=== PATIENT | female | born 1960 | race Caucasian/White ===

== ENCOUNTER 2022-07-08 06:19 | Day surgery (SDC) | payer BC, SELFPAY ==
[2022-07-08] VITALS (10 sets, daily range): BP systolic 102–129; BP diastolic 57–82; PULSE 44–66; RESP 14–16; TEMP 36.5–36.8; O2SAT 97–100; BMI 25.0
[2022-07-08] MEDS: LACTATED RINGERS 1000 ML 1,000 ML 100 ML IV (06:30)
[2022-07-08] MEDS: CEFAZOLIN 2 GM in 0.9 % SODIUM CHLORIDE Mini-bag 100 ML IVPB (07:36)
--- NOTE | 2022-07-08 08:12 | P.ORPRC_ITS ---
Procedure Note Date of procedure: 07/08/22 Procedure: PREOPERATIVE DIAGNOSIS: 1. Right knee medial and lateral meniscus tear POSTOPERATIVE DIAGNOSIS: 1. Right knee medial and lateral meniscus tear 2. 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 3. 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 Right knee arthroscopic partial medial and lateral menisectomy 2. Right knee chondroplasty medial femoral condyle and trochlear groove (loose chondral flaps) SURGEON: Sudheer Newberry M.D. DISTRIBUTION FIELD ENGINEER: Ángel Gibson PA-C. Of note, an acquisitions assistant was critical for this case to aid in patient positioning, knee manipulation, instrument exchange, and closure. ANESTHESIA: Spinal EBL: 2ml TOURNIQUET: 25 minutes at 300 torr COMPLICATIONS: None evident INDICATIONS: The patient is a pleasant 62-year-old female who has experienced right knee pain particularly with any twisting or turning. Physical exam was concerning for medial meniscus tear, this was confirmed on MRI. Additionally, attempted nonoperative management has been tried, and failed. Thus, surgery was recommended. FINDINGS: For complex tearing of the posterior horn medial meniscus approaching the posterior root involving the root and a radial tear. It then extended longitudinally cross the posterior meniscal horn. Had some complex pattern to it. Primarily vertical but also some horizontal and oblique tearing. Lateral meniscus showed tearing of the more central portion from the posterior horn to the anterior horn around the entire circumference. Posterior root was intact. Grade 3 chondromalacia of trochlear groove (6 mm in diameter a greatest location) and grade 3-4 patella median ridge and lateral facet. Also grade 3 chondromalacia medial femoral condyle weight-bearing portion measuring 10 mm in diameter. No loose bodies. ACL and PCL were intact. Lateral compartment articular cartilage overall healthy with only mild grade 2 chondromalacia posterior weight-bearing portion. DESCRIPTION OF PROCEDURE: After a thorough discussion of risks, benefits, and alternatives, the patient was brought to the operating room and placed upon the operating table. Induction of anesthesia was undertaken as previously noted. 2g iv Ancef was administered within 1 hr of incision preoperatively. Appropriate time-out was performed identifying proper patient, site, and procedure. The right lower extremity was prepped and draped in the appropriate sterile fashion using ChloraPrep. The limb was exsanguinated and tourniquet inflated. Anterolateral and anteromedial portals were established with an 11 blade, and a diagnostic arthroscopy was performed. This identified the findings as noted above. Following the diagnostic arthroscopy, a partial medial and lateral menisectomy was performed with the combination of basket forceps and a motorized shaver. Following this, the meniscus was re-probed and found to be stable. Approximately 25-30 % of the overall meniscus required resection. Regarding the lateral meniscus, partial meniscectomy was performed here as well with basket forceps and torpedo shaver. Approximately 10-15% of the overall meniscus required resection here. The shaver was also utilized for chondroplasty of the loose chondral flaps medial femoral condyle and trochlear groove. At this stage, the shaver was reinserted into the suprapatellar pouch and all remaining meniscal debris was evacuated. Instruments were removed, excess fluid was drained, and closure performed with 4-0 Monocryl with Steri-Strips. Dressings were applied, the tourniquet deflated, and the patient was awoken from anesthesia and transferred to the PACU in stable condition. PLAN: 1. Weightbear as tolerated operative extremity. Crutch / walker ambulation assistance PRN. 2. Ice, acetominophen and/or ibuprofen, and Percocet for pain as needed. 3. Knee range of motion and quad sets/straight leg raise regularly 4. Follow up with PA visit in 1-2 weeks for a wound check and possibly to initiate physical therapy.
[2022-07-08] MEDS: ROPIVACAINE 0.5% 30 ML 150 MG INJECTION (08:16)
--- NOTE | 2022-07-08 08:29 | W.ANESCHARGE ---
Anesthesia Charges Start Date/Time Anesthesia Start Date: 07/08/22 Anesthesia Start Time: 07:26 Stop Date/Time Anesthesia Stop Date: 07/08/22 Anesthesia Stop Time: 08:28 Summary Emergency: No
--- NOTE | 2022-07-08 09:30 | W.ANESCHARGE ---
Anesthesia Charges Start Date/Time Anesthesia Start Date: 07/08/22 Anesthesia Start Time: 07:26 Stop Date/Time Anesthesia Stop Date: 07/08/22 Anesthesia Stop Time: 08:28 Summary Emergency: No
== END 2022-07-08 11:06 | disposition home or self-care (01) ==
PROVIDERS: PCP Physician Assistant Medical; Visit Provider Orthopaedic Surgery Sports Medicine
PROC: (CPT 29870; principal; 2022-07-08 07:30)
DX: M23.221 Derangement of posterior horn of medial meniscus due to old tear or injury, right knee (principal); M23.251 Derangement of posterior horn of lateral meniscus due to old tear or injury, right knee; M94.261 Chondromalacia, right knee
CPT/HCPCS: 29880; 01400; J0690; J1100; J2250; J2400; J2405; J2704; J2795; J3010; J7120

== ENCOUNTER 2022-07-09 20:11 | Emergency (ER) | payer BC, SELFPAY ==
[2022-07-09 20:54] VITALS: BP 114/68; PULSE 85; RESP 16; TEMP 35.9; O2SAT 98; BMI 25.1
--- NOTE | 2022-07-09 22:51 | CRLHL7_ITS ---
For Patients: As a result of the Cures Act, medical imaging exams and procedure reports are released immediately into your electronic medical record. You may view this report before your referring provider. If you have questions, please contact your health care provider. INDICATION: Syncope. TECHNIQUE: CT head without contrast. COMPARISON: None. FINDINGS: CSF spaces: Within normal limits for age. Brain parenchyma and extra-axial spaces: Postsurgical changes in the right frontotemporal lobe with underlying encephalomalacia. No sign of mass, hemorrhage, or midline shift. No extra-axial fluid collection. Skull base and calvarium: The visualized paranasal sinuses and mastoid air cells demonstrate no acute or significant findings. The visualized orbits are grossly unremarkable. Postsurgical changes from right frontotemporal craniotomy. No skull fractures. IMPRESSION: No acute intracranial process identified. Postsurgical changes from right frontal temporal craniotomy with underlying encephalomalacia in the anterior right temporal lobe. Please note that all CT scans at this facility use dose modulation, iterative reconstruction, and/or weight-based dosing when appropriate to reduce radiation dose to as low as reasonably achievable. Dictated by Bianka Gutierrez MD @ 07/09/2022 11:57:50 PM (Electronically Signed)
--- NOTE | 2022-07-09 23:23 | ED.SYNCOPE ---
HPI - Syncope General Chief Complaint: Syncope/Fainted <Chito Harp MD - Last Filed: 07/11/22 07:21> Stated Complaint: passed out, fever, sweating, nausea <Chito Harp MD - Last Filed: 07/11/22 07:21> Time Seen by Provider: 07/09/22 22:48 <Chito Harp MD - Last Filed: 07/11/22 07:21> History of Present Illness HPI narrative: Pt is a 62 year old woman who had right knee arthroscopy approximately 1 week ago who presents after a syncopal episode this evening. Pt was seated at the kitchen table when she felt lightheaded and briefly for 1-2 seconds lost consciousness. Pt was caught by her daughter before she fell. Pt had minimal prodrome and had no post ictal symptoms. Pt describes no nausea, vomiting or lightheadedness. She states that she has not felt well since having her knee surgery with no localizing symptoms. Pt is now back to her post op baseline. She states the episode occured approximately 3 hours ago as she had a 2 hour wait in the ED. No previous syncope. <Chito Harp MD - Last Filed: 07/11/22 07:21> Related Data Home Medications: Previous Rx's Medication Instructions Recorded oxycodone-acetaminophen 5 mg-325 1 tab PO Q4-8H PRN pain #10 tabs 07/08/22 mg tablet (Percocet) rivaroxaban 15 mg tablet (Xarelto) 15 mg PO BID 3 weeks #42 tabs 07/10/22 <Chito Harp MD - Last Filed: 07/11/22 07:21> Allergies/Adverse Reactions: Allergies Allergy/AdvReac Type Severity Reaction Status Date / Time hydrocodone Allergy Rash Verified 07/08/22 06:24 morphine Allergy Rash Verified 07/08/22 06:24 <Chito Harp MD - Last Filed: 07/11/22 07:21> Review of Systems Status of ROS: Reports: 10 or more systems reviewed and unremarkable except as noted in History and below <Chito Harp MD - Last Filed: 07/11/22 07:21> [facility] Medical History: Medical History Benign meningioma (~2012) GERD (gastroesophageal reflux disease) Seasonal allergies <Chito Harp MD - Last Filed: 07/11/22 07:21> Surgical History: Surgical History H/O vaginal hysterectomy History of back surgery History of foot surgery History of tonsillectomy <Chito Harp MD - Last Filed: 07/11/22 07:21> Social History: Social History Smoking Status: Former smoker What tobacco products do you use: cigarettes Smoking quit date/years: >15 years ago Do you use any of these nicotine containing products: None Second hand tobacco smoke exposure: No How often do you have a drink containing alcohol: never AUDIT-C Alcohol total score: 0 Non-prescribed substance use: marijuana (any form) <Chito Harp MD - Last Filed: 07/11/22 07:21> Exam Narrative: Exam Narrative: EXAM GENERAL: Patient appears comfortable and well. EYES: No scleral icterus. ENT: Tympanic membranes and oropharynx normal. THYROID: no thyroid nodules or thyromegaly. LYMPH: No supraclavicular or cervical lymphadenopathy. SKIN: Visible skin seen during exam normal or with benign process only. EXT: No dependent lower extremity pedal edema. HEART: Regular rate and rhythm with no murmurs, rubs, or gallops. LUNGS: Clear to auscultation bilaterally with no crackles or wheezes. ABD: Soft, non tender, non distended. PSYCH: Good eye contact, speech is not pressured. <Chito Hapr MD - Last Filed: 07/11/22 07:21> Const: Vital Signs, click to edit/add: Vital Signs - 24 hr 07/09/22 20:54 07/10/22 02:43 Temperature 96.7 F L Pulse Rate [Right Pulse Oximeter] 85 61 Respiratory Rate 16 16 Blood Pressure [Ri ght Upper Arm] 114/68 112/70 Pulse Oximetry 98 97 Oxygen Delivery Me thod Room Air Room Air <Chito Harp MD - Last Filed: 07/11/22 07:21> Vital Signs, click to edit/add: Vital Signs - 24 hr 07/09/22 20:54 07/10/22 02:43 Temperature 96.7 F L Pulse Rate [Right Pulse Oximeter] 85 61 Respiratory Rate 16 16 Blood Pressure [Ri ght Upper Arm] 114/68 112/70 Pulse Oximetry 98 97 Oxygen Delivery Me thod Room Air Room Air <Jolanta aGlarza MD - Last Filed: 07/10/22 03:51> Course Course Hospital Course: Pt seen and examined. Vitals reviewed. CT of head, D dimer, EKG, Toponin, CBC, Basic Metabolic Panel, UA ordered <Chito Harp MD - Last Filed: 07/11/22 07:21> Reevaluation(s) Reevaluation #1: Pt CT of the head negative for acute findings. Pt labs unremarkable except for elevated D-dimer which is likely from surgery but CT PE study ordered. <Chito Harp MD - Last Filed: 07/11/22 07:21> Time: 01:06 <Chito Harp MD - Last Filed: 07/11/22 07:21> Vital Signs Vital signs: Initial Vital Signs Temperature 96.7 F L 07/09/22 20:54 Temperature Source Temporal Artery Scan 07/09/22 20:54 Pulse Rate 85 07/09/22 20:54 Pulse Rhythm 07/09/22 20:54 Respiratory Rate 16 07/09/22 20:54 Blood Pressure 114/68 07/09/22 20:54 Blood Pressure Mean 83 07/09/22 20:54 Pulse Oximetry 98 07/09/22 20:54 Oxygen Delivery Method 07/09/22 20:54 Vital Signs Temperature 96.7 F L 07/09/22 20:54 Pulse Rate 85 07/09/22 20:54 Respiratory Rate 16 07/09/22 20:54 Blood Pressure 114/68 07/09/22 20:54 Pulse Oximetry 98 07/09/22 20:54 Oxygen Delivery Method 07/09/22 20:54 Temperature 96.7 F L 07/09/22 20:54 Pulse Rate 61 07/10/22 02:43 Respiratory Rate 16 07/10/22 02:43 Blood Pressure 112/70 07/10/22 02:43 Pulse Oximetry 97 07/10/22 02:43 Oxygen Delivery Method 07/10/22 02:43 <Chito Harp MD - Last Filed: 07/11/22 07:21> Initial Vital Signs Temperature 96.7 F L 07/09/22 20:54 Temperature Source Temporal Artery Scan 07/09/22 20:54 Pulse Rate 85 07/09/22 20:54 Pulse Rhythm 07/09/22 20:54 Respiratory Rate 16 07/09/22 20:54 Blood Pressure 114/68 07/09/22 20:54 Blood Pressure Mean 83 07/09/22 20:54 Pulse Oximetry 98 07/09/22 20:54 Oxygen Delivery Method 07/09/22 20:54 Vital Signs Temperature 96.7 F L 07/09/22 20:54 Pulse Rate 85 07/09/22 20:54 Respiratory Rate 16 07/09/22 20:54 Blood Pressure 114/68 07/09/22 20:54 Pulse Oximetry 98 07/09/22 20:54 Oxygen Delivery Method 07/09/22 20:54 Temperature 96.7 F L 07/09/22 20:54 Pulse Rate 61 07/10/22 02:43 Respiratory Rate 16 07/10/22 02:43 Blood Pressure 112/70 07/10/22 02:43 Pulse Oximetry 97 07/10/22 02:43 Oxygen Delivery Method 07/10/22 02:43 <Jolanta Galarza MD - Last Filed: 07/10/22 03:51> MDM - Syncope MDM Narrative Medical decision making narrative: Reviewed CT scan findings with patient. Small by basilar pulmonary emboli. No tachycardia, no hypotension, no hypoxia. Patient does not meet criteria for admission. Reviewed her risk factors for PE, low risk. This is even a very low risk surgery. Because of this I recommend bilateral venous Doppler ultrasounds. Discussed anticoagulation, recommend Xarelto, she is in agreement with this. Would recommend that she have hematology follow-up and workup for what seemingly a unprovoked PE. Update 345: Reviewed venous Doppler ultrasound, appears to be some nonocclusive thrombus in the right calf. This is confirmed with radiology report. It does not extend beyond the knee and is not fully occlusive. Discussed findings with patient. She received her 1st dose of Xarelto here in the emergency department, we discussed anticoagulation. Discussed pain control, avoidance of NSAIDs if possible, typical expectations of symptoms and symptoms that would warrant alarm. She verbalizes understanding and agreement. Does not need hospitalization because there is no tachycardia, no hypoxia, no hypotension. There is not severe clot burden in her legs. <Jolanta Galarza MD - Last Filed: 07/10/22 03:51> Medical Records Attestation: I reviewed the patient's medical records. <Jolanta Galarza MD - Last Filed: 07/10/22 03:51> Lab Data Attestation: I reviewed the patient's lab results. <Jolanta Galarza MD - Last Filed: 07/10/22 03:51> Labs: Lab Results 07/10/22 07/10/22 07/10/22 Range/Units 00:15 00:15 00:15 WBC 8.41 (4.50-11.00) K/uL RBC 4.38 (4.00-5.20) m/uL Hgb 13.3 (12.0-16.0) gm/dL Hct 41.5 (33.0-51.0) % MCV 95 (80-100) fL MCH 30 (26-34) pg MCHC 32 (32-36) gm/dL RDW Coeff of [place] 12.8 (11.5-15.5) % Plt Count 170 (140-440) K/uL Neut % (Auto) 65.9 (42.0-72.0) % Lymph % (Auto) 24.9 (20-44) % [place] % (Auto) 8.2 (0.0-11.0) % Eos % (Auto) 0.7 (0.0-7.0) % Baso % (Auto) 0.2 (0.0-3.0) % Neut # (Auto) 5.54 (1.7-7.0) K/uL Lymph # (Auto) 2.09 (0.90-2.90) K/uL [place] # (Auto) 0.70 (0.00-0.90) K/UL Eos # (Auto) 0.06 (0.00-0.50) K/uL Baso # (Auto) 0.02 (0.00-0.30) K/uL Abs Immat Gran (auto) 0.01 (0.00-0.30) K/uL Imm/Tot Granulo (auto) 0.1 % D-Dimer Quant (PE/DVT) 3.72 H (0.00-0.50) ug/ml Sodium 141 (135-149) mmol/L Potassium 4.1 (3.6-5.1) mmol/L Chloride 106 (96-114) mmol/L Carbon Dioxide 29 (20-32) mmol/L BUN 24 (7-30) mg/dL Creatinine 1.1 (0.5-1.5) mg/dL Estimated Creat Clear 50.91 Estimated GFR 56 ml/min Glucose 85 (60-115) mg/dL Calcium 9.1 (8.4-10.6) mg/dL Troponin I < 0.01 L (0.01-0.04) ng/mL Urine Color (Yellow) Urine Appearance (Clear) Urine pH (5.0-8.5) Ur Specific [place] (1.000-1.030) Urine Protein (Negative) Urine Glucose (UA) (Negative) Urine Ketones (Negative) Urine Blood (Negative) Urine Nitrite (Negative) Urine Bilirubin (Negative) Urine Urobilinogen (0.2-1.0) Ur Leukocyte Esterase (Negative) 07/10/22 Range/Units 00:15 WBC (4.50-11.00) K/uL RBC (4.00-5.20) m/uL Hgb (12.0-16.0) gm/dL Hct (33.0-51.0) % MCV (80-100) fL MCH (26-34) pg MCHC (32-36) gm/dL RDW Coeff of [place] (11.5-15.5) % Plt Count (140-440) K/uL Neut % (Auto) (42.0-72.0) % Lymph % (Auto) (20-44) % [place] % (Auto) (0.0-11.0) % Eos % (Auto) (0.0-7.0) % Baso % (Auto) (0.0-3.0) % Neut # (Auto) (1.7-7.0) K/uL Lymph # (Auto) (0.90-2.90) K/uL [place] # (Auto) (0.00-0.90) K/UL Eos # (Auto) (0.00-0.50) K/uL Baso # (Auto) (0.00-0.30) K/uL Abs Immat Gran (auto) (0.00-0.30) K/uL Imm/Tot Granulo (auto) % D-Dimer Quant (PE/DVT) (0.00-0.50) ug/ml Sodium (135-149) mmol/L Potassium (3.6-5.1) mmol/L Chloride (96-114) mmol/L Carbon Dioxide (20-32) mmol/L BUN (7-30) mg/dL Creatinine (0.5-1.5) mg/dL Estimated Creat Clear Estimated GFR ml/min Glucose (60-115) mg/dL Calcium (8.4-10.6) mg/dL Troponin I (0.01-0.04) ng/mL Urine Color Yellow (Yellow) Urine Appearance Clear (Clear) Urine pH 6.0 (5.0-8.5) Ur Specific [place] 1.025 (1.000-1.030) Urine Protein Negative (Negative) Urine Glucose (UA) Negative (Negative) Urine Ketones Negative (Negative) Urine Blood Negative (Negative) Urine Nitrite Negative (Negative) Urine Bilirubin Negative (Negative) Urine Urobilinogen 0.2 (0.2-1.0) Ur Leukocyte Esterase Negative (Negative) <Chito Harp MD - Last Filed: 07/11/22 07:21> Lab Results 07/10/22 07/10/22 07/10/22 Range/Units 00:15 00:15 00:15 WBC 8.41 (4.50-11.00) K/uL RBC 4.38 (4.00-5.20) m/uL Hgb 13.3 (12.0-16.0) gm/dL Hct 41.5 (33.0-51.0) % MCV 95 (80-100) fL MCH 30 (26-34) pg MCHC 32 (32-36) gm/dL RDW Coeff of [place] 12.8 (11.5-15.5) % Plt Count 170 (140-440) K/uL Neut % (Auto) 65.9 (42.0-72.0) % Lymph % (Auto) 24.9 (20-44) % [place] % (Auto) 8.2 (0.0-11.0) % Eos % (Auto) 0.7 (0.0-7.0) % Baso % (Auto) 0.2 (0.0-3.0) % Neut # (Auto) 5.54 (1.7-7.0) K/uL Lymph # (Auto) 2.09 (0.90-2.90) K/uL [place] # (Auto) 0.70 (0.00-0.90) K/UL Eos # (Auto) 0.06 (0.00-0.50) K/uL Baso # (Auto) 0.02 (0.00-0.30) K/uL Abs Immat Gran (auto) 0.01 (0.00-0.30) K/uL Imm/Tot Granulo (auto) 0.1 % D-Dimer Quant (PE/DVT) 3.72 H (0.00-0.50) ug/ml Sodium 141 (135-149) mmol/L Potassium 4.1 (3.6-5.1) mmol/L Chloride 106 (96-114) mmol/L Carbon Dioxide 29 (20-32) mmol/L BUN 24 (7-30) mg/dL Creatinine 1.1 (0.5-1.5) mg/dL Estimated Creat Clear 50.91 Estimated GFR 56 ml/min Glucose 85 (60-115) mg/dL Calcium 9.1 (8.4-10.6) mg/dL Troponin I < 0.01 L (0.01-0.04) ng/mL Urine Color (Yellow) Urine Appearance (Clear) Urine pH (5.0-8.5) Ur Specific [place] (1.000-1.030) Urine Protein (Negative) Urine Glucose (UA) (Negative) Urine Ketones (Negative) Urine Blood (Negative) Urine Nitrite (Negative) Urine Bilirubin (Negative) Urine Urobilinogen (0.2-1.0) Ur Leukocyte Esterase (Negative) 07/10/22 Range/Units 00:15 WBC (4.50-11.00) K/uL RBC (4.00-5.20) m/uL Hgb (12.0-16.0) gm/dL Hct (33.0-51.0) % MCV (80-100) fL MCH (26-34) pg MCHC (32-36) gm/dL RDW Coeff of [place] (11.5-15.5) % Plt Count (140-440) K/uL Neut % (Auto) (42.0-72.0) % Lymph % (Auto) (20-44) % [place] % (Auto) (0.0-11.0) % Eos % (Auto) (0.0-7.0) % Baso % (Auto) (0.0-3.0) % Neut # (Auto) (1.7-7.0) K/uL Lymph # (Auto) (0.90-2.90) K/uL [place] # (Auto) (0.00-0.90) K/UL Eos # (Auto) (0.00-0.50) K/uL Baso # (Auto) (0.00-0.30) K/uL Abs Immat Gran (auto) (0.00-0.30) K/uL Imm/Tot Granulo (auto) % D-Dimer Quant (PE/DVT) (0.00-0.50) ug/ml Sodium (135-149) mmol/L Potassium (3.6-5.1) mmol/L Chloride (96-114) mmol/L Carbon Dioxide (20-32) mmol/L BUN (7-30) mg/dL Creatinine (0.5-1.5) mg/dL Estimated Creat Clear Estimated GFR ml/min Glucose (60-115) mg/dL Calcium (8.4-10.6) mg/dL Troponin I (0.01-0.04) ng/mL Urine Color Yellow (Yellow) Urine Appearance Clear (Clear) Urine pH 6.0 (5.0-8.5) Ur Specific [place] 1.025 (1.000-1.030) Urine Protein Negative (Negative) Urine Glucose (UA) Negative (Negative) Urine Ketones Negative (Negative) Urine Blood Negative (Negative) Urine Nitrite Negative (Negative) Urine Bilirubin Negative (Negative) Urine Urobilinogen 0.2 (0.2-1.0) Ur Leukocyte Esterase Negative (Negative) <Jolanta Galarza MD - Last Filed: 07/10/22 03:51> Imaging Data CT scan - chest: Radiologist's impression: IMPRESSION: 1. Small acute pulmonary emboli are present within the right middle lobe, right lower lobe and lingula. <Jolanta Galarza MD - Last Filed: 07/10/22 03:51> Discharge Plan Discharge Clinical Impression: Acute deep vein thrombosis (DVT) of distal end of right lower extremity, Pulmonary emboli <Chito Harp MD - Last Filed: 07/11/22 07:21> Patient Disposition: Home w/ Parent or Adult <Chito Harp MD - Last Filed: 07/11/22 07:21> Condition: Stable <Chito Harp MD - Last Filed: 07/11/22 07:21> Instructions: Deep Vein Thrombosis (ED) <Chito Harp MD - Last Filed: 07/11/22 07:21> Additional Instructions: You have developed a blood clot after surgery in your leg. A small piece of this has traveled into your lungs, likely causing your fainting spell. We will start you on blood thinners. You have been given your 1st dose here in the emergency room. Your next dose will be this evening. Read the instructions carefully, you take this 2 times per day for the 1st few weeks and then change to a different dose once daily. I would like for you to follow-up with her primary care doctor in a few days for recheck. Because this was a minor surgery, it was not highly likely to have given you a blood clot in this warrants some discussion on your long-term risk of more blood clots. Your primary care doctor might consider keeping you a blood thinners for a longer period of time or for having you evaluated by a farm loan representative for further discussion. As we discussed, it is best to use Tylenol for pain control. Ibuprofen and Aleve might have some interactions with the blood thinners. It is okay to take the oxycodone. Is important that you come back to the emergency department right away if you start feeling more short of breath. Some chest wall tightness can be common and some very mild shortness of breath with activity would be expected. This should improve in a few weeks. <Chito Harp MD - Last Filed: 07/11/22 07:21> Activity Level: Activity as Tolerated <Chito Harp MD - Last Filed: 07/11/22 07:21> Activity as Tolerated <Jolanta Galarza MD - Last Filed: 07/10/22 03:51> Discharge Diet: Regular <Chito Harp MD - Last Filed: 07/11/22 07:21> Regular <Jolanta Galarza MD - Last Filed: 07/10/22 03:51> Prescriptions: New Xarelto 15 mg tablet 15 mg PO BID 21 Days Qty: 42 0RF Rx Instructions: After 3 weeks, switch to 20 mg once daily, prescription from primary care provider No Action oxycodone-acetaminophen [Percocet] 5-325 mg tablet 1 tab PO Q4-8H PRN (Reason: pain) Qty: 10 0RF <Chito Harp MD - Last Filed: 07/11/22 07:21> Follow Up/Referrals: Cynthia Kendrick, PABlaiseC [Primary Care Provider] - <Chito Harp MD - Last Filed: 07/11/22 07:21> Stand Alone Forms: MyHealth Info Instructions <Chito Harp MD - Last Filed: 07/11/22 07:21>
[2022-07-10 00:23] LABS: Basophils Absolute Auto 0.02 K/uL (0.00-0.30); Basophils Percent Auto 0.2 % (0.0-3.0); Eosinophils Absolute Auto 0.06 K/uL (0.00-0.50); Eosinophils Percent Auto 0.7 % (0.0-7.0); Hematocrit 41.5 % (33.0-51.0); Hemoglobin* 13.3 gm/dL (12.0-16.0); Immature Granulocytes Abs Auto 0.01 K/uL (0.00-0.30); Immature Granulocytes Pct Auto 0.1 %; Lymphocytes Absolute Auto 2.09 K/uL (0.90-2.90); Lymphocytes Percent Auto 24.9 % (20-44); Mean Corpuscular HGB Conc 32 gm/dL (32-36); Mean Corpuscular Hemoglobin 30 pg (26-34); Mean Corpuscular Volume 95 fL (80-100); Monocytes Percent Auto 8.2 % (0.0-11.0); Neutrophils Absolute Auto 5.54 K/uL (1.7-7.0); Neutrophils Percent Auto 65.9 % (42.0-72.0); Platelet Count* 170 K/uL (140-440); RDW Coefficient of Variation % 12.8 % (11.5-15.5); Red Blood Count 4.38 m/uL (4.00-5.20); White Blood Count* 8.41 K/uL (4.50-11.00)
[2022-07-10 00:31] LABS: Appearance Urine Clear (Clear); Bilirubin Urine Negative (Negative); Blood Urine Negative (Negative); Color Urine Yellow (Yellow); Glucose Urine Negative (Negative); Ketones Urine Negative (Negative); Leukocyte Esterase Urine Negative (Negative); Nitrite Urine Negative (Negative); Protein Urine Negative (Negative); Slide Review Reflex No; Specific Gravity Urine 1.025 (1.000-1.030); Urobilinogen Urine 0.2 (0.2-1.0)
[2022-07-10 00:36] LABS: Chloride* 106 mmol/L (96-114); Potassium* 4.1 mmol/L (3.6-5.1); Sodium* 141 mmol/L (135-149)
[2022-07-10 00:39] LABS: Blood Urea Nitrogen* 24 mg/dL (7-30); Carbon Dioxide* 29 mmol/L (20-32); Creatinine* 1.1 mg/dL (0.5-1.5); Est. Creatinine Clearance* 50.91; Estimated Glomerular Filt Rate 56 ml/min
[2022-07-10 00:40] LABS: Calcium* 9.1 mg/dL (8.4-10.6); Glucose* 85 mg/dL (60-115)
[2022-07-10 00:42] LABS: D Dimer Quantitative* 3.72 ug/ml (0.00-0.50)
[2022-07-10 00:56] LABS: Troponin I* < 0.01 ng/mL (0.01-0.04)
--- NOTE | 2022-07-10 01:11 | CRLHL7_ITS ---
For Patients: As a result of the Century Cures Act, medical imaging exams and procedure reports are released immediately into your electronic medical record. You may view this report before your referring provider. If you have questions, please contact your health care provider. INDICATION: Syncope TECHNIQUE: CT chest with i.v. contrast using pulmonary angiographic technique. Coronal and sagittal reformats were obtained. CONTRAST: 95 mL Isovue 370 COMPARISON: None FINDINGS: Cardiovascular: Small acute pulmonary emboli are present within the right middle lobe, right lower lobe and lingula. The heart has an unremarkable appearance and size. Ectasia of the ascending aorta is noted measuring 3.3 cm. Mediastinum: No mass or adenopathy seen. Lung: Minimal segmental atelectasis is present in the medial left lower lobe. A small portion of the right apex is excluded. Pleura and pericardium: No sign of pleural effusion seen. No significant pericardial effusion is present. Chest wall and axilla: No mass or adenopathy seen. Bone: Unremarkable for age. Upper abdomen: Unremarkable. IMPRESSION: 1. Small acute pulmonary emboli are present within the right middle lobe, right lower lobe and lingula. The findings were discussed with Dr. Galarza at 1:57 AM. Dictated by Christopher Small MD @ 07/10/2022 1:54:41 AM Please note that all CT scans at this facility use dose modulation, iterative reconstruction, and/or weight-based dosing when appropriate to reduce radiation dose to as low as reasonably achievable. Dictated by: Christopher Small MD @ 07/10/2022 01:57:51 (Electronically Signed)
--- NOTE | 2022-07-10 02:15 | CRLHL7_ITS ---
For Patients: As a result of the Century Cures Act, medical imaging exams and procedure reports are released immediately into your electronic medical record. You may view this report before your referring provider. If you have questions, please contact your health care provider. INDICATION: Bilateral pulmonary embolism TECHNIQUE: Ultrasound venous duplex bilateral lower extremities. Real-time chang-scale (B mode 2D), color Doppler, and spectral Doppler imaging were performed with compression and augmentation. COMPARISON: None FINDINGS: Deep veins: Nonocclusive thrombus is seen within the right posterior tibial and peroneal calf veins. The right common femoral, femoral, and popliteal veins are patent and compressible. The left lower extremity deep veins are patent and compressible. Superficial veins: The visualized greater saphenous and superficial veins of the leg and calf are unremarkable. Soft tissue: No masses or cysts are identified. No adenopathy is seen. IMPRESSION: 1. Nonocclusive thrombus is seen within the right posterior tibial and peroneal calf veins. The findings were discussed with Dr. Galarza at 3:37 AM. Dictated by Christopher Small MD @ 07/10/2022 3:37:30 AM Dictated by: Christopher Small MD @ 07/10/2022 03:37:38 (Electronically Signed)
[2022-07-10 02:43] VITALS: BP 112/70; PULSE 61; RESP 16; O2SAT 97
[2022-07-10] MEDS: RIVAROXABAN 10 MG TABLET 15 MG PO (02:44)
== END 2022-07-10 04:21 | disposition home or self-care (01) ==
PROVIDERS: Emergency Provider Internal Medicine; PCP Physician Assistant Medical
DX: I82.4Z1 Acute embolism and thrombosis of unspecified deep veins of right distal lower extremity (principal)
CPT/HCPCS: 36415; 70450; 71260; 80048; 81003; 84484; 85025; 85379; 93005; 93970; 99283; 99284; 99285; A9270; Q9967

== ENCOUNTER 2022-07-11 11:11 | Outpatient (CLI) | payer BC, SELFPAY | END 2022-07-11 11:12 | disposition home or self-care (01) | LOC: AMB 08-05 20:03 | PROVIDERS: PCP Physician Assistant Medical; Visit Provider Family Medicine | DX: R07.89 Other chest pain (principal) | CPT/HCPCS: A0425; A0427 ==

== ENCOUNTER 2022-07-11 11:42 | Emergency (ER) | payer BC, SELFPAY ==
[2022-07-11] VITALS (9 sets, daily range): BP systolic 103–139; BP diastolic 67–97; PULSE 64; TEMP 36.8; O2SAT 100; BMI 25.1
--- NOTE | 2022-07-11 12:05 | ED_ITS ---
HPI - General Adult General Time Seen by Provider: 12:06 Date Seen: 07/11/22 Stated complaint: Chest pain Time Seen by Provider: 07/11/22 11:50 Source: patient, EMS and RN notes reviewed Mode of arrival: EMS Limitations: no limitations History of Present Illness HPI narrative: Patient is a 62-year-old female coming in with chest discomfort, it is particularly bad just starting today, does hurt with breathing. It really started this morning. She states she took her Xarelto around 8:00 a.m. and then about an hour later she started having dizziness severe chest discomfort and nausea. 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 She was initiated on Xarelto and has been taking it. She has taken 2 doses at home. She last took oxycodone yesterday. She has been using this for her knee but it is making her constipated. No fevers. No sense of palpitations. She would like something for discomfort. She is not coughing, no hemoptysis. She is not short of breath. Related Data Previous Rx's Medication Instructions Recorded oxycodone-acetaminophen 5 mg-325 1 tab PO Q4-8H PRN pain #10 tabs 07/08/22 mg tablet (Percocet) rivaroxaban 15 mg tablet (Xarelto) 15 mg PO BID 3 weeks #42 tabs 07/10/22 Allergies Allergy/AdvReac Type Severity Reaction Status Date / Time hydrocodone Allergy Rash Verified 07/08/22 06:24 morphine Allergy Rash Verified 07/08/22 06:24 Review of Systems Status of ROS: Reports: 10 or more systems reviewed and unremarkable except as noted in History and below FOR[facility], LATER [facility] Medical History Benign meningioma (~2011) GERD (gastroesophageal reflux disease) Seasonal allergies Surgical History H/O vaginal hysterectomy History of back surgery History of foot surgery History of tonsillectomy Social History Smoking Status: Former smoker What tobacco products do you use: cigarettes Smoking quit date/years: >15 years ago Do you use any of these nicotine containing products: None Second hand tobacco smoke exposure: No How often do you have a drink containing alcohol: never AUDIT-C Alcohol total score: 0 Non-prescribed substance use: marijuana (any form) Exam Const: Vital Signs, click to edit/add: Vital Signs - 24 hr 07/11/22 11:51 Temperature 98.3 F Pulse Rate [Pulse Oximeter] 64 Blood Pressure [Ri ght Upper Arm] 139/97 H Pulse Oximetry 100 Oxygen Delivery Me thod Room Air Documenting provider has reviewed patient's vital signs: yes Common normals: no apparent distress, average body habitus, oriented x3, no limitations, healthy appearing and alert General appearance: cooperative, comfortable, well kempt and well developed Nutritional appearance: thin HENMT: Common normals: normocephalic, head/scalp atraumatic, hearing grossly normal bilaterally, external nose normal, nasal mucous membranes and turbinates normal, moist oral mucous membranes, oropharynx normal, dentition normal and gingiva normal Head and scalp: normocephalic and atraumatic Nose: external nose normal and nasal mucous membranes and turbinates normal Eye: Common normals: PERRL, EOMs intact bilaterally, conjunctivae normal and no scleral icterus Conjunctiva: conjunctiva(e) normal Pupil: PERRL Neck & C-Spine: Common normals: full ROM, no lymphadenopathy, supple, no meningeal signs, no JVD and thyroid normal Thyroid: thyroid normal Chest: Common normals: inspection of chest normal and palpation of chest normal Resp: Common normals: normal respiratory effort, no retractions, no use of accessory muscles and clear to auscultation bilaterally Auscultation: clear to auscultation bilaterally Cardio: Common normals: no JVD, regular rate, regular rhythm, S1 normal heart sound, S2 normal heart sound, no gallops, no clicks and no murmurs Rate: regular rate Rhythm: regular rhythm Heart sounds: S1 normal and S2 normal GI: Common normals: Normal to inspection, nondistended, normoactive bowel sounds present, soft to palpation, non-tender, no hepatosplenomegaly and no masses Palpation: soft and no hepatosplenomegaly Extremity: Other: She has no pitting edema of her lower extremities. Calf is really not that tender on the right. She has some expected soft tissue swelling about the right knee, wounds look like they are well healing, no concerns of any postoperative infection on examination. Neuro: Common normals: oriented x3 Sensorium/orientation: alert Meningeal signs: no meningeal signs Speech: speech normal Psych: Appearance: well kempt Course Course Hospital Course: Patient has had a recent diagnosis of pulmonary embolus. She also has a right lower extremity DVT. We will proceed with CT of her chest with IV contrast looking at complications. Have discussed pulmonary infarction, cardiac complications of pulmonary emboli. Will check appropriate labs. She will be on pulse oximetry and cardiac monitoring. We will obtain an EKG as well. She is currently hemodynamically stable. Reevaluation(s) Reevaluation #1: Have reviewed with patient that her chest CT is not showing any concerning change. Her labs are stable, no evidence of any cardiac enzyme elevation. Her white count is normal, hemoglobin stable. She did have some dizziness, do wonder if it could be narcotic induced. She does not like how she feels on it. The 5 mg of oxycodone certainly did help her here. We discussed using Tylenol baseline, did review with her that she can try cutting the oxycodone in half and just taking 2.5 mg at a time. She is going to try that. We will be able to discharge her to home. She is not requiring hospitalization, is not hypoxic. Time: 14:29 Vital Signs Vital signs: Initial Vital Signs Temperature 98.3 F 07/11/22 11:51 Temperature Source Temporal Artery Scan 07/11/22 11:51 Pulse Rate 64 07/11/22 11:51 Blood Pressure 139/97 H 07/11/22 11:51 Blood Pressure Mean 111 07/11/22 11:51 Pulse Oximetry 100 07/11/22 11:51 Oxygen Delivery Method 07/11/22 11:51 Vital Signs Temperature 98.3 F 07/11/22 11:51 Pulse Rate 64 07/11/22 11:51 Blood Pressure 139/97 H 07/11/22 11:51 Pulse Oximetry 100 07/11/22 11:51 Oxygen Delivery Method 07/11/22 11:51 Temperature 98.3 F 07/11/22 11:51 Pulse Rate 64 07/11/22 11:51 Blood Pressure 139/97 H 07/11/22 11:51 Pulse Oximetry 100 07/11/22 11:51 Oxygen Delivery Method 07/11/22 11:51 Medical Decision Making Lab Data Lab results reviewed: Yes I reviewed the patient's lab results Labs: Lab Results 07/11/22 07/11/22 07/11/22 Range/Units 12:39 12:39 12:39 WBC 6.03 (4.50-11.00) K/uL RBC 4.28 (4.00-5.20) m/uL Hgb 13.2 (12.0-16.0) gm/dL Hct 40.4 (33.0-51.0) % MCV 94 (80-100) fL MCH 31 (26-34) pg MCHC 33 (32-36) gm/dL RDW Coeff of Florencia 13.0 (11.5-15.5) % Plt Count 166 (140-440) K/uL Neut % (Auto) 54.8 (42.0-72.0) % Lymph % (Auto) 35.0 (20-44) % Carter % (Auto) 7.8 (0.0-11.0) % Eos % (Auto) 1.5 (0.0-7.0) % Baso % (Auto) 0.7 (0.0-3.0) % Neut # (Auto) 3.31 (1.7-7.0) K/uL Lymph # (Auto) 2.11 (0.90-2.90) K/uL Carter # (Auto) 0.50 (0.00-0.90) K/UL Eos # (Auto) 0.09 (0.00-0.50) K/uL Baso # (Auto) 0.04 (0.00-0.30) K/uL Abs Immat Gran (auto) 0.01 (0.00-0.30) K/uL Imm/Tot Granulo (auto) 0.2 % VBG pH 7.369 (7.32-7.43) VBG pCO2 50 (40-50) mmHG VBG pO2 20.6 L (25-47) mmHG VBG HCO3 29 H (21-28) mmol/L Sodium 140 (135-149) mmol/L Potassium 4.1 (3.6-5.1) mmol/L Chloride 106 (96-114) mmol/L Carbon Dioxide 28 (20-32) mmol/L BUN 18 (7-30) mg/dL Creatinine 0.8 (0.5-1.5) mg/dL Estimated Creat Clear 56.00 Estimated GFR 83 ml/min Glucose 88 (60-115) mg/dL Calcium 9.0 (8.4-10.6) mg/dL Total Bilirubin 0.4 (0.1-1.5) mg/dL AST 23 (12-35) U/L ALT 15 (4-35) U/L Alkaline Phosphatase 63 (40-150) U/L C-Reactive Protein < 0.5 L (0.5-1.0) mg/dL NT-Pro-B Natriuret Pep 119 (0-125) PG/mL Total Protein 6.3 (6.0-8.3) g/dL Albumin 4.1 (3.3-5.0) g/dL POC Troponin I (0.01-0.04) ng/ml 07/11/22 Range/Units 12:45 WBC (4.50-11.00) K/uL RBC (4.00-5.20) m/uL Hgb (12.0-16.0) gm/dL Hct (33.0-51.0) % MCV (80-100) fL MCH (26-34) pg MCHC (32-36) gm/dL RDW Coeff of Florencia (11.5-15.5) % Plt Count (140-440) K/uL Neut % (Auto) (42.0-72.0) % Lymph % (Auto) (20-44) % Carter % (Auto) (0.0-11.0) % Eos % (Auto) (0.0-7.0) % Baso % (Auto) (0.0-3.0) % Neut # (Auto) (1.7-7.0) K/uL Lymph # (Auto) (0.90-2.90) K/uL Carter # (Auto) (0.00-0.90) K/UL Eos # (Auto) (0.00-0.50) K/uL Baso # (Auto) (0.00-0.30) K/uL Abs Immat Gran (auto) (0.00-0.30) K/uL Imm/Tot Granulo (auto) % VBG pH (7.32-7.43) VBG pCO2 (40-50) mmHG VBG pO2 (25-47) mmHG VBG HCO3 (21-28) mmol/L Sodium (135-149) mmol/L Potassium (3.6-5.1) mmol/L Chloride (96-114) mmol/L Carbon Dioxide (20-32) mmol/L BUN (7-30) mg/dL Creatinine (0.5-1.5) mg/dL Estimated Creat Clear Estimated GFR ml/min Glucose (60-115) mg/dL Calcium (8.4-10.6) mg/dL Total Bilirubin (0.1-1.5) mg/dL AST (12-35) U/L ALT (4-35) U/L Alkaline Phosphatase (40-150) U/L C-Reactive Protein (0.5-1.0) mg/dL NT-Pro-B Natriuret Pep (0-125) PG/mL Total Protein (6.0-8.3) g/dL Albumin (3.3-5.0) g/dL POC Troponin I 0.00 L (0.01-0.04) ng/ml Imaging Data CT scan - chest: Attestation: I have reviewed the pertinent imaging results. My impression: Did review her chest CT preliminarily. I did not see any evidence of any parenchymal abnormalities in the lung itself. Will certainly await Radiology over-read. Radiologist's impression: Patient: DAPHNE IGLESIAS Facility:?[facility] Patient ID:?[id number] Site Patient ID:?[id number]. Site :?[id number] Study:?CT Chest W/ISOUVE 370 75CC-07/11/2022 1:02:23 PM Ordering Physician:Andria Cabezas Final Report: INDICATION: Increasing chest pain with known PE. TECHNIQUE: CT chest was acquired with 75 mL Isovue 370 IV contrast. Coronal and sagittal reformats were generated. COMPARISON: CT chest with PE protocol from 07/10/2022. FINDINGS: Thyroid: Unremarkable. Thoracic lymph nodes: No enlarged supraclavicular, mediastinal, hilar, or axillary lymph nodes. Mediastinum and esophagus: Unremarkable. Heart and vasculature: The heart size is normal. Previously described filling defects in the right middle and lower lobe pulmonary arteries as well as left upper lobe pulmonary arteries are grossly similar to prior. Lungs: Triangular opacity in the left lower lobe is similar and suggestive of scarring. Right basilar atelectasis. The lungs are otherwise clear. Pleura: Unremarkable. Chest wall: Unremarkable. Upper abdomen: Unremarkable. Bones: Unremarkable for age. IMPRESSION: 1. No significant change in bilateral pulmonary emboli, within limitations of differences in technique. 2. No other important changes or findings to suggest the etiology of the patient`s symptoms. Please note that all CT scans at this facility use dose modulation, iterative reconstruction, and/or weight-based dosing when appropriate to reduce radiation dose to as low as reasonably achievable. Dictated by Lalo Owen MD @ 07/11/2022 1:56:27 PM (Electronic Signature) ECG Data Attestation: I personally reviewed and interpreted this ECG as follows: (Sinus rhythm, 65 beats per minute. No acute ischemia, QT corrected 430 milliseconds.) Prior ECG tracings: available for review Critical Care Time Critical Care Time Critical Care Time: No Discharge Plan Discharge Clinical Impression: Pulmonary emboli Patient Disposition: Home, Self-Care Condition: Stable Additional Instructions: Need to stay on your blood thinner as ordered and take it as it is scheduled to protect the blood thinning properties. For discomfort, start with Tylenol 1000 mg up to 3 times a day baseline for pain. With the oxycodone, you can take 1/2- 1 tablet at a time. He can try cutting down to a half tablet to minimize some of the side effects but still see if it is effective in pain control. For control of constipation, can try senna 1-2 tablets once to twice a day to help with bowel movements. Can also add in MiraLax if needed. Once you are off the oxycodone, you hopefully would not need to senna or MiraLax. Schedule a clinic follow-up with your primary care provider in the next 1-2 weeks to help you with any further questions or concerns from the pulmonary emboli and DVT. Should you develop increasing chest pain, difficulty breathing or shortness of breath, have productive cough of blood, develops a fever, do need to be re-evaluated. Activity Level: Activity as Tolerated Prescriptions: No Action oxycodone-acetaminophen [Percocet] 5-325 mg tablet 1 tab PO Q4-8H PRN (Reason: pain) Qty: 10 0RF Xarelto 15 mg tablet 15 mg PO BID 21 Days Qty: 42 0RF Rx Instructions: After 3 weeks, switch to 20 mg once daily, prescription from primary care provider Follow Up/Referrals: Cynthia Kendrick PA-C [Primary Care Provider] - Stand Alone Forms: [facility] Info Instructions
--- NOTE | 2022-07-11 12:17 | CRLHL7_ITS ---
For Patients: As a result of the Century Cures Act, medical imaging exams and procedure reports are released immediately into your electronic medical record. You may view this report before your referring provider. If you have questions, please contact your health care provider. INDICATION: Increasing chest pain with known PE. TECHNIQUE: CT chest was acquired with 75 mL Isovue 370 IV contrast. Coronal and sagittal reformats were generated. COMPARISON: CT chest with PE protocol from 07/10/2022. FINDINGS: Thyroid: Unremarkable. Thoracic lymph nodes: No enlarged supraclavicular, mediastinal, hilar, or axillary lymph nodes. Mediastinum and esophagus: Unremarkable. Heart and vasculature: The heart size is normal. Previously described filling defects in the right middle and lower lobe pulmonary arteries as well as left upper lobe pulmonary arteries are grossly similar to prior. Lungs: Triangular opacity in the left lower lobe is similar and suggestive of scarring. Right basilar atelectasis. The lungs are otherwise clear. Pleura: Unremarkable. Chest wall: Unremarkable. Upper abdomen: Unremarkable. Bones: Unremarkable for age. IMPRESSION: 1. No significant change in bilateral pulmonary emboli, within limitations of differences in technique. 2. No other important changes or findings to suggest the etiology of the patient`s symptoms. Please note that all CT scans at this facility use dose modulation, iterative reconstruction, and/or weight-based dosing when appropriate to reduce radiation dose to as low as reasonably achievable. Dictated by Lalo Owen MD @ 07/11/2022 1:56:27 PM (Electronically Signed)
[2022-07-11 12:44] LABS: HCO3 VBG 29 mmol/L (21-28); PCO2 VBG 50 mmHG (40-50); pH VBG 7.369 (7.32-7.43)
[2022-07-11 12:47] LABS: PO2 VBG 20.6 mmHG (25-47)
[2022-07-11 12:48] LABS: Basophils Absolute Auto 0.04 K/uL (0.00-0.30); Basophils Percent Auto 0.7 % (0.0-3.0); Eosinophils Absolute Auto 0.09 K/uL (0.00-0.50); Eosinophils Percent Auto 1.5 % (0.0-7.0); Hematocrit 40.4 % (33.0-51.0); Hemoglobin* 13.2 gm/dL (12.0-16.0); Immature Granulocytes Abs Auto 0.01 K/uL (0.00-0.30); Immature Granulocytes Pct Auto 0.2 %; Lymphocytes Absolute Auto 2.11 K/uL (0.90-2.90); Mean Corpuscular HGB Conc 33 gm/dL (32-36); Mean Corpuscular Hemoglobin 31 pg (26-34); Mean Corpuscular Volume 94 fL (80-100); Monocytes Percent Auto 7.8 % (0.0-11.0); Neutrophils Absolute Auto 3.31 K/uL (1.7-7.0); Neutrophils Percent Auto 54.8 % (42.0-72.0); Platelet Count* 166 K/uL (140-440); Red Blood Count 4.28 m/uL (4.00-5.20); White Blood Count* 6.03 K/uL (4.50-11.00)
[2022-07-11 12:53] LABS: Slide Review Reflex No
[2022-07-11] MEDS: OXYCODONE 5 MG TABLET PO (13:05)
[2022-07-11 13:45] LABS: NT Pro B Type NatriureticPept* 119 PG/mL (0-125)
[2022-07-11 14:09] LABS: Blood Urea Nitrogen* 18 mg/dL (7-30); Carbon Dioxide* 28 mmol/L (20-32); Chloride* 106 mmol/L (96-114); Creatinine* 0.8 mg/dL (0.5-1.5); Estimated Glomerular Filt Rate 83 ml/min; Glucose* 88 mg/dL (60-115); Potassium* 4.1 mmol/L (3.6-5.1); Sodium* 140 mmol/L (135-149); Total Protein* 6.3 g/dL (6.0-8.3)
[2022-07-11 14:10] LABS: Alanine Aminotransferase* 15 U/L (4-35); Albumin* 4.1 g/dL (3.3-5.0); Alkaline Phosphatase* 63 U/L (40-150); Aspartate Amino Transferase* 23 U/L (12-35); Bilirubin Total* 0.4 mg/dL (0.1-1.5); C Reactive Protein* < 0.5 mg/dL (0.5-1.0)
== END 2022-07-11 15:01 | disposition home or self-care (01) ==
PROVIDERS: Emergency Provider Family Medicine; PCP Physician Assistant Medical
DX: I26.99 Other pulmonary embolism without acute cor pulmonale (principal)
CPT/HCPCS: 36415; 71260; 80053; 82803; 83880; 85025; 86140; 93005; 94761; 99284; 99285; A9270; Q9967

== ENCOUNTER 2022-07-29 19:41 | Outpatient (CLI) | payer BC, SELFPAY | END 2022-07-29 19:42 | disposition home or self-care (01) | LOC: AMB 08-05 08:13 | PROVIDERS: PCP Physician Assistant Medical; Visit Provider Family Medicine | DX: R07.89 Other chest pain (principal); R42 Dizziness and giddiness | CPT/HCPCS: A0425; A0427 ==

== ENCOUNTER 2022-09-27 09:15 | Outpatient (RCR) | payer BC, SELFPAY | END 2023-03-13 23:59 | disposition home or self-care (01) | PROVIDERS: PCP Physician Assistant Medical; Visit Provider Physician Assistant Medical | DX: M25.561 Pain in right knee (principal); Z51.89 Encounter for other specified aftercare | CPT/HCPCS: 97110; 97162 ==